=== PATIENT | male | born 1965 | race Caucasian/White ===

== ENCOUNTER → 2020-08-19 | Outpatient (CLI) | payer MEDICARE, OTHER ==
[~2020-08-19] MED LIST: ASPIRIN EC81 MG PO; ATORVASTATIN CA20 MG PO; CEPHALEXIN500 MG PO; CLEOCIN HCL300 MG PO; CLINDAMYCIN HC300 MG PO; GLUCOPHAGE 500500 MG PO; HYDROCODON-ACE1 EAC4 PO; KEFLEX CAP 500500 MG PO; KLONOPIN TAB 00.5 MG PO; LASIX 40 MG TAB40 MG PO; LISINOPRIL20 MG PO; NABUMETONE500 MG PO; NEURONTIN 300300 MG PO; OMEPRAZOLE20 M1 PO; PRINIVIL20 MG PO; SOTALOL80 MG PO; TYLENOL W/CODEIN1 E1 PO
[2020-08-19 10:23] LABS: HEMOGLOBIN 15.9 gm/dl (14.0-17.5); RED BLOOD COUNT 5.38 M/UL (4.20-5.50); WHITE BLOOD COUNT 10.3 K/UL (4.5-11.0)
[2020-08-19 10:45] LABS: BUN/CREATININE RATIO 15 (0-10)
== END ==
LOC: LAB 09:48
PROVIDERS: Internal Medicine Cardiovascular Disease
DX: I48.91 Unspecified atrial fibrillation (principal); I11.0 Hypertensive heart disease with heart failure; I50.22 Chronic systolic (congestive) heart failure; Z20.822 Contact with and (suspected) exposure to COVID-19
CPT/HCPCS: 36415; 71046; 80048; 85025; U0003

== ENCOUNTER 2020-08-23 06:48 | Outpatient (CLI) | payer MEDICARE, OTHER ==
[~2020-08-23] VITALS: Ht 175.3 cm; Wt 108.9 kg
[~2020-08-23 06:48] MED LIST changes: -CEPHALEXIN500 MG PO; -CLINDAMYCIN HC300 MG PO; -GLUCOPHAGE 500500 MG PO; -HYDROCODON-ACE1 EAC4 PO; -LASIX 40 MG TAB40 MG PO
[2020-08-23] MEDS ORDERED: GLUCOPHAGE 500500 MG PO (08:41)
[2020-08-23] MEDS ORDERED: LASIX 40 MG TAB40 MG PO (08:41)
[2020-08-23] MEDS ORDERED: CEPHALEXIN500 MG PO (09:38)
[2020-08-23] MEDS ORDERED: CLINDAMYCIN HC300 MG PO (09:38)
[2020-08-23] MEDS ORDERED: HYDROCODON-ACE1 EAC4 PO (09:38)
--- NOTE | 2020-08-24 09:55 | NUR ---
INSTRUCTED PATIENT AND NEW MEDS E-SCRIPTED TO [place], [place]. TAKE ALL ANTIBIOTICS UNTIL COMPLETE. HOLD METFORMIN UNTIL 08/25/20. KEEP FOLLOW UP APPOINTMENT WITH DR. GIRON. VERBALIZED UNDERSTANDING, MIRNA ARENAS
== END 2020-08-24 10:33 | disposition home or self-care (01) ==
LOC: CATH 06:48 → M/S 14:16 → CATH 08-24 10:33
DX: I48.91 Unspecified atrial fibrillation (principal); I50.22 Chronic systolic (congestive) heart failure; I10 Essential (primary) hypertension; Z95.0 Presence of cardiac pacemaker
CPT/HCPCS: 33213; 33225; 71045; 82962; 93005; 99152; 99153; C1769; C1900; C2621; J1200; J1644; J2250; J3010; J3370; J7040; J7050; J7070; Q9965

== ENCOUNTER → 2021-01-26 | Outpatient (CLI) | payer MEDICARE, OTHER ==
[~2021-01-26] MED LIST changes: +CEPHALEXIN500 MG PO; +CLINDAMYCIN HC300 MG PO; +GLUCOPHAGE 500500 MG PO; +HYDROCODON-ACE1 EAC4 PO; +LASIX 40 MG TAB40 MG PO
== END ==
LOC: HEART 5 01-25 10:00
DX: I50.22 Chronic systolic (congestive) heart failure (principal); I07.1 Rheumatic tricuspid insufficiency; Z95.0 Presence of cardiac pacemaker
CPT/HCPCS: 93306